=== PATIENT | male | born 1960 | race African-American/Black ===

== ENCOUNTER 2018-04-25 15:58 | Emergency (ER) | payer OTHER, MEDICAID ==
[~2018-04-25] VITALS: Ht 182.9 cm; Wt 138.3 kg
[2018-04-25 16:13] VITALS: BP_SYST 135
[2018-04-25 17:45] VITALS: BP_SYST 135
== END 2018-04-25 17:45 | disposition home or self-care (01) ==
LOC: SED 15:58
DX: G89.29 Other chronic pain (principal); M54.2 Cervicalgia; M54.9 Dorsalgia, unspecified; R03.0 Elevated blood-pressure reading, without diagnosis of hypertension; E11.40 Type 2 diabetes mellitus with diabetic neuropathy, unspecified
CPT/HCPCS: 99281

== ENCOUNTER 2019-09-26 13:25 | Emergency (ER) | payer OTHER, MEDICAID ==
[~2019-09-26] VITALS: Ht 188 cm; Wt 120.2 kg
[2019-09-26 13:25] VITALS: BP_SYST 130
--- NOTE | 2019-09-26 13:25 | NUR ---
BROUGHT BACK TO BED #7 AND TRIAGED. REPORT GIVEN TO THERESE
--- NOTE | 2019-09-26 13:27 | NUR ---
Patient arrived in the ED c/o elevated blood glucose reading for the last 2 weeks, stated he ran out of Metformin for 1.5 months. Denied any chest pain or shortness of breath. Denied any fevers, chills, nausea or vomiting. Patient is alert and oriented x4, respirations even and unlabored, speaking in full sentences, and ambulating with a steady gait. VSS, pain level 0/10. Informed of the approximate wait time. Instructed to notify ED staff for any changes in condition or worsening of symptoms. Patient verbalized understanding.
--- NOTE | 2019-09-26 13:43 | NUR ---
Accucheck done as ordered by Dr. Saucedo, random [id number]. Notified
--- NOTE | 2019-09-26 13:47 | NUR ---
ER Dr. Saucedo at bedside examining patient.
[2019-09-26 13:58] VITALS: BP_SYST 130
--- NOTE | 2019-09-26 13:58 | NUR ---
Patient given written and verbal discharge instructions and verbalizes understanding. ER MD discussed with patient the results and treatment provided. Patient in stable condition. ID arm band removed. Rx of Metformin given. Patient educated on pain management and to follow up with PMD. Pain Scale 0/10. Opportunity for questions provided and answered. Medication side effect fact sheet provided.
== END 2019-09-26 13:58 | disposition home or self-care (01) ==
LOC: SED 13:25
DX: E11.65 Type 2 diabetes mellitus with hyperglycemia (principal); Z76.0 Encounter for issue of repeat prescription
CPT/HCPCS: 82962; 99283

== ENCOUNTER 2020-11-22 00:28 | Emergency (ER) | payer MEDICAID, OTHER ==
[~2020-11-22] VITALS: Ht 188 cm; Wt 122.5 kg
[2020-11-22 00:30] VITALS: BP_SYST 148
[2020-11-22] MEDS ORDERED: KETOROLAC TROMETHAMINE 15 MG VIAL IVP ONE (01:45)
[2020-11-22] MEDS ORDERED: MORPHINE 2 MG/ML INJ. SYRINGE IVP ONE (01:45)
[2020-11-22] MEDS ORDERED: LORazepam 2 MG/ML VIAL IVP ONE (01:45)
[2020-11-22] MEDS ORDERED: METH-634 PO (05:18)
[2020-11-22] MEDS ORDERED: NAPR-686 PO (05:18)
[2020-11-22] MEDS ORDERED: HYDR-3917 PO (05:18)
[2020-11-22 05:48] VITALS: BP_SYST 128
== END 2020-11-22 05:49 | disposition home or self-care (01) ==
LOC: SED 00:28
DX: S13.4XXA Sprain of ligaments of cervical spine, initial encounter (principal); S39.012A Strain of muscle, fascia and tendon of lower back, initial encounter; E11.9 Type 2 diabetes mellitus without complications; V49.49XA Driver injured in collision with other motor vehicles in traffic accident, initial encounter; Y93.89 Activity, other specified; Y92.89 Other specified places as the place of occurrence of the external cause; Y99.8 Other external cause status
CPT/HCPCS: 70450; 72125; 72131; 76376; 96374; 96375; 99285; J1885; J2060; J2270

== ENCOUNTER 2020-12-05 13:05 | Emergency (ER) | payer OTHER ==
[~2020-12-05] VITALS: Ht 188 cm; Wt 122.5 kg
[~2020-12-05 13:05] MED LIST: HYDR-3917 PO; METH-634 PO; NAPR-686 PO
--- NOTE | 2020-12-05 13:20 | NUR ---
Attempted to bring patient to triage room, pt refused, states he does not want to go to small room . states he is afraid of covid, pt yelling and upset.
[2020-12-05 13:52] VITALS: BP_SYST 147
--- NOTE | 2020-12-05 14:30 | NUR ---
Patient to ER bed 05 to gown for evaluation. Side rails up.
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
--- NOTE | 2020-12-05 14:50 | NUR ---
ER DR. CHEN AT THE BEDSIDE EXAMINING PT
[2020-12-05] MEDS ORDERED: CYCL-10 PO (15:38)
[2020-12-05] MEDS ORDERED: HYDR25TA4 PO (15:38)
[2020-12-05] MEDS ORDERED: NAPR-1172 PO (15:38)
--- NOTE | 2020-12-05 15:50 | NUR ---
Patient given written and verbal discharge instructions and verbalizes understanding. ER MD discussed with patient the results and treatment provided. Patient in stable condition. ID arm band removed. Rx of Naproxyn, [place], hydrochlorothiazide and Flexeril given. Patient educated on pain management and to follow up with PMD. Pain Scale 0. Opportunity for questions provided and answered. Medication side effect fact sheet provided.
[2020-12-05] MEDS: MORPHINE SULFATE 10 MG/ML VIAL IM ONE (15:51)
[2020-12-05] MEDS: DIPHENHYDRAMINE INJ 50 MG/ML VIAL IM ONE (15:51)
[2020-12-05 16:20] VITALS: BP_SYST 147
== END 2020-12-05 16:20 | disposition home or self-care (01) ==
LOC: SED 13:05
DX: M54.2 Cervicalgia (principal); I10 Essential (primary) hypertension; E11.9 Type 2 diabetes mellitus without complications; Z79.899 Other long term (current) drug therapy
CPT/HCPCS: 96372; 99284; J1200; J2270